=== PATIENT | female | born 1945 | race Caucasian/White ===

== ENCOUNTER 2021-11-22 01:22 | Emergency (ER) | payer MEDICARE, OTHER ==
[2021-11-22] MEDS ORDERED: ZOFRAN ODT 4 MG4 MG PO (02:11)
[2021-11-22] MEDS ORDERED: ENDOCET 5-3251 EACH PO (02:13)
== END 2021-11-22 02:20 | disposition home or self-care (01) ==
LOC: ER1 01:22
DX: S82.51XA Displaced fracture of medial malleolus of right tibia, initial encounter for closed fracture (principal); S82.401A Unspecified fracture of shaft of right fibula, initial encounter for closed fracture; S92.191A Other fracture of right talus, initial encounter for closed fracture; I10 Essential (primary) hypertension; X50.1XXA Overexertion from prolonged static or awkward postures, initial encounter
CPT/HCPCS: 29515; 73590; 73610; 99283